=== PATIENT | female | born 1980 | race Caucasian/White ===

== ENCOUNTER 2022-06-30 09:07 | Outpatient (CLI) | payer OTHER, SELFPAY ==
--- NOTE | ~2022-06-30 | US_ITS ---
EXAMINATION: US soft tissue head and neck DATE: 06/30/2022 09:37 INDICATION: Anterior neck mass. TECHNIQUE: Multiple grayscale and Doppler ultrasound images of the neck were obtained. COMPARISON: None FINDINGS: In the right anterior neck, there is a 1.2 x 1.5 x 1.1 cm cystic mass involving the strap m uscles. IMPRESSION: 1. 1.5 cm cystic mass in right anterior neck involving the strap muscles, likely a thyroglossal duct cyst. Neck CT with contrast is recommended. Reviewed, dictated and finalized at location A. IMPRESSION: 1. 1.5 cm cystic mass in right anterior neck involving the strap muscles, likel y a thyroglossal duct cyst. Neck CT with contrast is recommended.
== END 2022-06-30 09:08 | disposition home or self-care (01) ==
PROVIDERS: PCP Physician Assistant; Visit Provider Physician Assistant
DX: R22.1 Localized swelling, mass and lump, neck (principal)
CPT/HCPCS: 76536

== ENCOUNTER 2022-07-04 13:38 | Outpatient (CLI) | payer OTHER, SELFPAY ==
--- NOTE | ~2022-07-04 | CT_ITS ---
EXAMINATION: CT soft tissue neck w con DATE: 07/04/2022 14:55 INDICATION: Neck mass. TECHNIQUE: Computed tomography (CT) of the neck was performed with 75 mL Omnipaque-350 intravenous co ntrast. Automated exposure control and iterative reconstruction technique were employed. The dose-brian gth product was 517.14 mGy-cm. COMPARISON: Ultrasound 06/30/2022 FINDINGS: There are no pathologically enlarged lymph nodes. There is a 2.1 x 1.1 x 1.3 cm cystic mass involving the strap muscles centered to the right of midline. The thyroid is unremarkable. There is mild cervical kyphosis. IMPRESSION: 1. 2.1 cm cystic mass involving the strap muscles centered to the right of midline, consistent with a thyroglossal duct cyst. Reviewed, dictated and finalized at location A. IMPRESSION: 1. 2.1 cm cystic mass involving the strap muscles centered to the right of midl ine, consistent with a thyroglossal duct cyst.
== END 2022-07-04 13:39 | disposition home or self-care (01) ==
PROVIDERS: PCP Physician Assistant; Visit Provider Physician Assistant
DX: R22.1 Localized swelling, mass and lump, neck (principal)
CPT/HCPCS: 70491; Q9967

== ENCOUNTER 2024-02-18 14:22 | Outpatient (CLI) | payer OTHER, SELFPAY ==
--- NOTE | 2024-02-18 14:42 | ECG_ITS ---
SEE SCANNED COPY FOR CONFIRMED REPORT MTDD
== END 2024-02-18 14:23 | disposition home or self-care (01) ==
LOC: ANHCARD 14:31
PROVIDERS: PCP Physician Assistant; Visit Provider Physician Assistant
DX: R00.2 Palpitations (principal)
CPT/HCPCS: 93005